=== PATIENT | male | born 1960 | race Caucasian/White ===

== ENCOUNTER 2016-12-01 10:16 | Observation (INO) | payer BC ==
[~2016-12-01] VITALS: Ht 167.6 cm; Wt 87.5 kg
[~2016-12-01 10:16] MED LIST: ALBUTEROL SULF8.5 GM IH; AMOXICILLIN875 MG PO; AUGMENTIN875 MG PO; Ativan PO; Augmentin PO; BENADRYL50 MG PO; Imodium PO; LISINOPRIL20 MG PO; PREDNISONE20 MG PO; PREVACID 24HR15 MG PO; PREVACID15 MG PO; Zestril,Prinivil PO
[2016-12-01 11:13] LABS: EOSINOPHIL (%) 1.2 % (0-5); EOSINOPHIL COUNT 0.1 K/uL (0-0.3); HEMATOCRIT 45.1 % (38.0-50.0); IMMATURE GRANULOCYTE (%) 0.2 % (0.0-0.7); INSTRUMENT ABS NEUTROPHIL CT 3.3 K/uL; MCH 30.3 PG (29.0-34.0); MCHC 33.7 G/DL (30.0-36.0); MEAN PLAT.VOLUME 9.2 uM^3 (9.0-12.4); MONOCYTE (%) 8.1 % (3-12); MONOCYTE COUNT 0.5 K/uL (0-0.8); NEUTROPHIL (%) 56.4 % (45-76); NEUTROPHIL COUNT 3.3 K/uL (1.8-6.4); PLATELET COUNT 200 K/uL (156-360); RBC DIS.WIDTH-CV 12.8 % (11.8-14.6); RED BLOOD COUNT 5.01 M/uL (4.00-5.50); WHITE BLOOD COUNT 5.8 K/uL (4.1-10.2)
[2016-12-01 11:23] LABS: CHLORIDE 106 mEq/L (99-109); POTASSIUM 4.1 mEq/L (3.7-5.4); SODIUM 140 mEq/L (136-147)
[2016-12-01 11:24] LABS: GLUCOSE 93 mg/dL (70-99)
[2016-12-01 11:26] LABS: ANION GAP 10 MEQ/L (2-14)
[2016-12-01 11:28] LABS: GFR ESTIMATE (CALCULATED) > 59 mL/min/
[2016-12-01 11:29] LABS: UREA NITROGEN (BUN) 11 mg/dL (9-23)
[2016-12-01 11:34] LABS: TROP-I INTERPRETATION NEGATIVE; TROPONIN-I < 0.01 ng/mL (0.0-0.30)
[2016-12-01 15:29] LABS: HDL CHOLESTEROL 33 MG/DL (Desirable>=40); LDL CHOLESTEROL 122 mg/dL (Desirable<100); NON-HDL CHOLESTEROL 145 mg/dL (Desirable<160); TOTAL CHOLESTEROL 178 mg/dL (Desirable<200); TRIGLYCERIDES 115 MG/DL (Normal: <150)
[2016-12-01 15:56] VITALS: BP 119/72
[2016-12-01] MEDS ORDERED: LISINOPRIL2.5 MG PO (16:14)
[2016-12-01] MEDS ORDERED: CYANOCOBALAM1000 MCG PO (16:19)
[2016-12-01] MEDS ORDERED: ASPIRIN81 M2 PO (16:20)
[2016-12-01 16:41] LABS: TROP-I INTERPRETATION NEGATIVE; TROPONIN-I < 0.01 ng/mL (0.0-0.30)
[2016-12-01 19:48] VITALS: BP 121/71
[2016-12-01] MEDS ORDERED: PREVACID 24HR15 MG PO (20:35)
[2016-12-01 22:27] LABS: TROP-I INTERPRETATION NEGATIVE; TROPONIN-I < 0.01 ng/mL (0.0-0.30)
[2016-12-01 23:25] VITALS: BP 119/72
[2016-12-02 05:53] VITALS: BP 124/74
[2016-12-02 08:11] VITALS: BP 128/78
[2016-12-02 11:20] VITALS: BP 120/78
[2016-12-02] MEDS ORDERED: ATORVASTATIN CA40 MG PO (11:35)
== END 2016-12-02 12:10 | disposition home or self-care (01) ==
LOC: EME 10:16 → 5WEST 13:22 → EDOF 13:22 → ENRESERV 13:26 → EDOF 13:31 → ENRESERV 13:37 → 5WEST 15:25
PROVIDERS: Emergency Medicine; Internal Medicine
DX: R07.9 Chest pain, unspecified (principal); M54.2 Cervicalgia; I10 Essential (primary) hypertension; E78.5 Hyperlipidemia, unspecified; K21.9 Gastro-esophageal reflux disease without esophagitis; Z86.03 Personal history of neoplasm of uncertain behavior; Z98.890 Other specified postprocedural states
CPT/HCPCS: 71010; 80048; 80061; 84484; 85025; 90686; 93005; 93880; 99281; 99285; G0378; J1650; J7030